=== PATIENT | female | born 1960 | race Caucasian/White ===

== ENCOUNTER 2016-11-25 18:01 | Emergency (ER) | payer OTHER ==
[~2016-11-25] VITALS: Ht 149.9 cm; Wt 93.0 kg
[2016-11-25 18:05] VITALS: BP 153/101
--- NOTE | 2016-11-25 18:13 | NUR ---
56/F BIB DAUGHTER LOWER BACK PAIN ,COUGH & SOB X 3 DAYS. PT STATES HAD COUGH X 3 MOOTH AND WENT TO PCP LAST MONTH & GOT ANTIBIOTIC BUT DOES NOT HELP. PT DENIES N/V/D; SKIN IS PINK/WARM/DRY; AAOX4 WITH EVEN AND STEADY GAIT; LUNGS CLEAR BL; HR EVEN AND REGULAR; PT DENIES ANY FEVER, CP AT THIS TIME; PATIENT STATES PAIN OF 3/10 AT THIS TIME; VSS; PATIENT POSITIONED FOR COMFORT; HOB ELEVATED; BEDRAILS UP X2; BED DOWN. ER MD MADE AWARE OF PT STATUS.
--- NOTE | 2016-11-25 18:14 | NUR ---
Patient to bed 08.
--- NOTE | 2016-11-25 18:27 | NUR ---
PT TAKENTO X RAY VIA W/C ACCOMPANIED BY DIGITAL CONTENT SPECIALIST
--- NOTE | 2016-11-25 19:23 | NUR ---
Pt report given to MARIELA AGEE. Transfer of care at this time.
--- NOTE | 2016-11-25 19:35 | NUR ---
GAVE REPORT TO MARIELA CARRASCO FOR TRANSFER OF CARE
[2016-11-25 20:11] VITALS: BP 150/98
== END 2016-11-25 20:11 | disposition home or self-care (01) ==
LOC: MED 18:01
DX: G62.9 Polyneuropathy, unspecified (principal); I10 Essential (primary) hypertension; E11.9 Type 2 diabetes mellitus without complications

== ENCOUNTER 2017-05-13 03:20 | Emergency (ER) | payer OTHER ==
[~2017-05-13] VITALS: Ht 149.9 cm; Wt 92.7 kg
[2017-05-13 03:23] VITALS: BP 150/90
--- NOTE | 2017-05-13 03:34 | NUR ---
Patient to bed 04.
[2017-05-13] MEDS ORDERED: NACL 0.9% 1,000 ML IV ONE (03:35)
--- NOTE | 2017-05-13 03:37 | NUR ---
56 Y/O F W/C/O UPPER ABD PAIN, NAUSEA, AND DIARRHEA X LAST NIGHT. PT STATES EVERYTHING STARTED 4 HRS AFTER EATING OATMEAL WITH MILK. NO S/S OF DISTRESS NOTED AT THE MOMENT.
[2017-05-13 03:55] LABS: BASOPHILS # (AUTO) 0.3 K/uL (0.00-0.22); BASOPHILS % (AUTO) 3.3 % (0.0-2.0); EOSINOPHILS # (AUTO) 0.4 K/uL (0-0.4); EOSINOPHILS % (AUTO) 4.8 % (0.0-4.0); HEMOGLOBIN 14.6 g/dL (12.0-16.0); LYMPHOCYTES % (AUTO) 37.8 % (20.5-51.1); MEAN CORPUSCULAR HEMOGLOBIN 31 pg (27-31); MEAN CORPUSCULAR HGB CONC 34 g/dL (33-37); MEAN CORPUSCULAR VOLUME 91 fL (80-94); MONOCYTES # (AUTO) 0.5 K/uL (0.8-1.0); NEUTROPHILS # (AUTO) 3.7 K/uL (1.8-7.7); NEUTROPHILS % (AUTO) 48.1 % (42.2-75.2); PLATELET COUNT (AUTO) 183 K/uL (140-450); RED BLOOD CELL COUNT(AUTO) 4.76 MIL/uL (4.20-5.40); RED CELL DISTRIBUTION WIDTH 12.4 % (11.6-13.7); WHITE BLOOD COUNT (AUTO) 7.9 K/uL (4.8-10.8)
[2017-05-13 04:14] LABS: ANION GAP 11.4 (8-16); CREATININE 0.7 mg/dL (0.6-1.3); POTASSIUM 3.4 mmol/L (3.5-5.1)
[2017-05-13 04:20] LABS: TOTAL BILIRUBIN 0.4 mg/dL (0.0-1.0)
[2017-05-13 04:21] LABS: ALBUMIN 3.5 g/dL (3.4-5.0)
[2017-05-13] MEDS ORDERED: ONDANSETRON 4 MG/2 ML VIAL IVP ONE (04:25)
[2017-05-13] MEDS ORDERED: KETOROLAC 30 MG/ML VIAL IVP ONE (04:25)
--- NOTE | 2017-05-13 04:53 | NUR ---
PT RESTING IN BED, VSS. NO S/S OF DISTRESS NOTED AT THIS MOMENT.
[2017-05-13 04:57] VITALS: BP 150/90
--- NOTE | 2017-05-13 04:57 | NUR ---
Patient discharged with v/s stable. Written and verbal after care instructions given and explained. Patient alert, oriented and verbalized understanding of instructions. Ambulatory with steady gait. All questions addressed prior to discharge. ID band removed. Patient advised to follow up with PMD OR RETURN TO ER IF CONDITION WORSENS Rx of ZOFRAN AND MOTRINgiven. Patient educated on indication of medication including possible reaction and side effects. Opportunity to ask questions provided and answered.
== END 2017-05-13 04:57 | disposition home or self-care (01) ==
LOC: MED 03:20
DX: T62.8X1A Toxic effect of other specified noxious substances eaten as food, accidental (unintentional), initial encounter (principal); K52.1 Toxic gastroenteritis and colitis; R10.84 Generalized abdominal pain; R11.0 Nausea; E11.65 Type 2 diabetes mellitus with hyperglycemia; I10 Essential (primary) hypertension; Y92.89 Other specified places as the place of occurrence of the external cause
CPT/HCPCS: 36415; 80053; 85025; 96361; 96374; 96375; 99284; J1885; J2405; J7030